=== PATIENT | female | born 1995 | race American Indian/Alaskan Native ===

== ENCOUNTER 2019-10-19 10:10 | Emergency (ER) | payer SELFPAY ==
[2019-10-19 10:52] VITALS: BP 110/73
--- NOTE | 2019-10-19 10:52 | Emergency Department Report ---
ED Female HPI - General Chief complaint: Urogenital-Female Stated complaint: BURNING Time Seen by Provider: 10/19/19 10:27 Source: patient Mode of arrival: Ambulatory Limitations: No Limitations - History of Present Illness Initial comments: Patient is a 24-year-old female presents emergency room complaints of dysuria that began a couple days ago. She states that she also has a thick white vaginal discharge and associated vaginal itching. She denies any abdominal pain, pelvic pain, nausea, vomiting, diarrhea, fever, back pain. No past medical history. No allergies to medications. She states her last menstrual cycle was August 27, she states she has irregular cycles. She states that she had a tubal ligation. She is sexually active without protection. - Related Data Previous Rx's Medication Instructions Recorded Last Taken Type Fluconazole [Diflucan TAB] 150 mg PO ONCE 1 Days #3 tablet 10/19/19 Unknown Rx Miconazole Nitrate [Monistat 7] 44 gm VG QHS #7 cmb.pf.crm 10/19/19 Unknown Rx Allergies Allergy/AdvReac Type Severity Reaction Status Date / Time No Known Allergies Allergy Verified 10/19/19 10:12 ED Review of Systems ROS: Stated complaint: BURNING Other details as noted in HPI Comment: All other systems reviewed and negative ED Past Medical Hx - Past Medical History Previous Medical History?: Yes Hx Asthma: Yes - Surgical History Past Surgical History?: No - Social History Smoking Status: Never Smoker Substance Use Type: None - Medications Home Medications: Home Medications Medication Instructions Recorded Confirmed Last Taken Type Fluconazole [Diflucan TAB] 150 mg PO ONCE 1 Days #3 tablet 10/19/19 Unknown Rx Miconazole Nitrate [Monistat 7] 44 gm VG QHS #7 cmb.pf.crm 10/19/19 Unknown Rx ED Physical Exam - General Limitations: No Limitations General appearance: alert, in no apparent distress - Head Head exam: Present: atraumatic, normocephalic - Eye Eye exam: Present: normal appearance - ENT ENT exam: Present: mucous membranes moist - Respiratory Respiratory exam: Present: normal lung sounds bilaterally. Absent: respiratory distress, wheezes, rales, rhonchi, stridor, chest wall tenderness, accessory muscle use, decreased breath sounds, prolonged expiratory - Cardiovascular Cardiovascular Exam: Present: regular rate, normal rhythm, normal heart sounds. Absent: systolic murmur, diastolic murmur, rubs, gallop - Neurological Exam Neurological exam: Present: alert, oriented X3 - Psychiatric Psychiatric exam: Present: normal affect, normal mood - Skin Skin exam: Present: warm, dry, intact ED Course Vital Signs 10/19/19 10:14 Temperature 98.0 F Pulse Rate 87 Respiratory 16 Rate Blood Pressure 110/73 O2 Sat by Pulse 100 Oximetry ED Medical Decision Making - Medical Decision Making Patient is a 24-year-old female presents emergency room complaints of dysuria that began a couple days ago. She states that she also has a thick white vaginal discharge and associated vaginal itching. She denies any abdominal pain, pelvic pain, nausea, vomiting, diarrhea, fever, back pain. No past medical history. No allergies to medications. She states her last menstrual cycle was August 27, she states she has irregular cycles. She states that she had a tubal ligation. She is sexually active without protection. Vitals are normal. Urine is negative. UA without evidence of UTI. G/C sent from urine. Given that patient is sexually active without protection, patient prophylactically treated for G/C. Patient does not have any clinical signs or symptoms of PID, no pelvic pain, no abdominal pain, no nausea, no vomiting, no diarrhea, no fever, no abdominal tenderness on exam. Patient given prescription for fluconazole and miconazole to treat for yeast infection. Discussed the importance with patient following up with [facility] and to follow-up with the clinic or the health department for full STD panel. advised pt Please use medication as prescribed. Please follow-up with a [facility]. Please follow-up with the clinic or health department for full STD panel. Please have partner tested and treated as well. Please avoid sexual intercourse. Please go to medical records in 1 week for results of your test be given treated for these today. Return to emergency room for any new or worsening symptoms. - Differential Diagnosis UTI, STD, yeast, vaginitis Critical care attestation.: If time is entered above; I have spent that time in minutes in the direct care of this critically ill patient, excluding procedure time. ED Disposition Clinical Impression: Dysuria, Candidiasis, At risk for sexually transmitted disease due to unprotected sex Disposition: - TO HOME OR SELFCARE Is pt being admited?: No Does the pt Need Aspirin: No Condition: Stable Instructions: Sexually Transmitted Diseases (ED), Safe Sex (ED), Vulvovaginal Candidiasis (ED), Dysuria (ED) Additional Instructions: Please use medication as prescribed. Please follow-up with a [facility]. Please follow-up with the clinic or health department for full STD panel. Please have partner tested and treated as well. Please avoid sexual intercourse. Please go to medical records in 1 week for results of your test be given treated for these today. Return to emergency room for any new or worsening symptoms. Prescriptions: Miconazole Nitrate [Monistat 7] 44 gm VG QHS #7 cmb.pf.crm Fluconazole [Diflucan TAB] 150 mg PO ONCE 1 Days #3 tablet Referrals: [facility] MD BENITO [Primary Care Provider] - 2-3 Days [facility] [Provider Group] - 2-3 Days [facility] [Outside] - 2-3 Days [facility] [Outside] - 2-3 Days STANISLAW ORTIZ JR, MD [Staff Physician] - 2-3 Days Time of Disposition: 11:03 Print Language: [place]
[2019-10-19 10:57] LABS: Bilirubin,Urine NEG (Negative); Blood,Urine NEG (Negative); Color,Urine Yellow (Yellow); Mucus,Urine 3+ /HPF; Protein,Urine <15 mg/dL mg/dL (Negative)
[2019-10-19 10:58] LABS: HCG Qualitative,Urine Negative (Negative)
[2019-10-19] MEDS ORDERED: LIDOCAINE-MPF (1%) 10 MG/1 ML VIAL 5 ML INFILTRATI ONE (11:01)
[2019-10-19] MEDS ORDERED: AZITHROMYCIN 250 MG TAB PO ONE (11:01)
== END 2019-10-19 11:30 | disposition home or self-care (01) ==
LOC: ED 10:10
DX: B37.3 Candidiasis of vulva and vagina (principal)
CPT/HCPCS: 81001; 81025; 87591; 96372; 99283; J0696